=== PATIENT | female | born 1955 | race Caucasian/White ===

== ENCOUNTER 2017-06-28 09:37 | Emergency (ER) | payer BC ==
[2017-06-28] MEDS ORDERED: SODIUM CHLORIDE 0.9% 1,000 ML IV ONE (10:37)
[2017-06-28] MEDS ORDERED: diphenhydrAMINE INJ 50 MG/ML VIAL IVP STA (10:38)
--- NOTE | 2017-06-28 10:42 | ED Physician Documentation ---
History of Present Illness - Stated complaint Stated Complaint: TAI,NAUSEA - Chief complaint Chief Complaint: General - History obtained from History obtained from: Patient - Additonal information Additional information: Patient is a 61-year-old female who is for the most part is healthy. She does have a history of hypertension and had a laminectomy at L4-L5 in February. Over the past couple days she has had a left-sided frontal headache at is bandlike in distribution. She also feels like she has had mild disequilibrium worse when she stands up. She has had nausea without vomiting. He does not typically get headaches but did have headaches following her spinal surgery secondary to orthostatic hypotension from what sounds like a dural leak. She noticed her blood pressure was a little high and started taking her amlodipine. She has been off this medication since the surgery. She also takes supplemental Premarin hormone replacement. She denies any fever or chills. When she closes her eyes she feels her balance is a bit off. She does not have any obvious spinning symptoms and there is no weakness numbness or tingling anywhere. She says she does not normally get a headache. Review of systems: For pertinent positive and negatives in the review of systems please see the history of present illness, otherwise all other systems have been reviewed and are negative. Dragon disclaimer: Parts of this medical record were created using voice recognition technology. Because of the inherent limitations of this system, occasional same sounding word substitutions do occur and persist despite proofreading. Please read the document for context. Review of Systems Constitutional: denies: Fever, Chills, Myalgias Eyes: denies: Loss of vision, Decreased vision Ears: reports: Tinnitus/ringing. 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 - Present Medications Home Medications: Ambulatory Orders Medication Instructions Recorded Confirmed Estrogens, Conjugated [Premarin] 0.09 mg PO DAILY 06/28/17 06/28/17 Famotidine [Pepcid] 20 mg PO DAILY 06/28/17 06/28/17 Frovatriptan Succinate 2.5 mg PO ONCE #14 tablet 06/28/17 Tramadol HCl 50 mg PO Q8HR PRN #14 tablet 06/28/17 amLODIPine [Norvasc] 5 mg PO DAILY 06/28/17 06/28/17 - Allergies Allergies/Adverse Reactions: Allergies Allergy/AdvReac Type Severity Reaction Status Date / Time aspirin Allergy Unknown Verified 06/28/17 09:45 codeine Allergy Unknown Verified 06/28/17 09:45 diphenhydramine HCl * Allergy Unknown Verified 06/28/17 11:05 [From Benadryl] erythromycin base Allergy Unknown Verified 06/28/17 09:45 - Social History Does the pt smoke?: No Smoking Status: Never smoker Does the pt drink ETOH?: No Does the pt have substance abuse?: No PD ED PE NORMAL - Vitals Vital signs reviewed: Yes - General General: Alert and oriented X 3, No acute distress, Well developed/nourished - HEENT HEENT: Atraumatic, PERRL, EOMI - Neck Neck: Supple, no meningeal sign, No bony TTP - Cardiac Cardiac: RRR, No murmur, No gallop, No rub - Respiratory Respiratory: No respiratory distress, Clear bilaterally - Abdomen Abdomen: Normal bowel sounds, Soft, Non tender - Back Back: No CVA TTP - Derm Derm: Normal color, Warm and dry - Extremities Extremities: No deformity, No tenderness to palpate, Normal ROM s pain - Neuro Neuro: Alert and oriented X 3, commutator undercutter 2-12 intact, No motor deficit, No sensory deficit Results - Vitals Vitals: Vital Signs - 24 hr 06/28/17 06/28/17 06/28/17 09:41 11:41 13:13 Temperature 36.0 C L Heart Rate 59 L 49 L 57 L Respiratory 18 18 18 Rate Blood Pressure 174/85 H 183/64 H 173/70 H O2 Saturation 99 100 100 06/28/17 06/28/17 14:28 15:12 Temperature Heart Rate 52 L 55 L Respiratory 16 12 Rate Blood Pressure 178/77 H 178/63 H O2 Saturation 99 100 Oxygen O2 Source Room air - Labs Labs: Laboratory Tests 06/28/17 06/28/17 06/28/17 10:55 10:55 11:40 WBC 8.4 RBC 4.70 Hgb 14.6 Hct 43.3 MCV 92.1 MCH 31.2 H MCHC 33.8 RDW 12.9 Plt Count 249 MPV 9.5 Neut # 5.1 Lymph # 2.6 Bowman # 0.5 Eos # 0.1 Baso # 0.1 Absolute Nucleated RBC 0.00 Nucleated RBCs 0.0 Sodium 139 Potassium 3.6 Chloride 102 Carbon Dioxide 29 Anion Gap 8.0 BUN 16 Creatinine 0.8 Estimated GFR (MDRD) 73 L Glucose 89 Calcium 9.0 Urine Color STRAW Urine Clarity CLEAR Urine pH 7.0 Ur Specific [place] <=1.005 Urine Protein NEGATIVE Urine Glucose (UA) NEGATIVE Urine Ketones NEGATIVE Urine Occult Blood TRACE-INTA Urine Nitrite NEGATIVE Urine Bilirubin NEGATIVE Urine Urobilinogen 0.2 (NORMAL) Ur Leukocyte Esterase NEGATIVE Ur Microscopic Review NOT INDICATED Urine Culture Comments NOT INDICATED PD MEDICAL DECISION MAKING - ED course ED course: Patient is a 61-year-old female with history of hypertension and a fairly recent history of laminectomy of L4-L5. She presents with a complaint of a frontal headache that is bandlike in distribution noted and that her blood pressure was slightly elevated as well. The patient thought that the blood pressure elevation was causal to her headache. She does have a history of headaches in the past and years ago did take Imitrex on occasional basis. She does have a history of hypertension is been off the amlodipine for the most part after she had orthostatic hypotension following her back surgery. She recently started taking amlodipine a couple days ago. On examination the patient is a pleasant well-appearing female in no apparent distress she has a normal neurologic exam with the exception of the positive Romberg. There is a little sway when she closes her eyes standing with a wide-based gait. The rest of her neurologic examination is normal I did not appreciate any nystagmus. A CT scan of the head was done is unremarkable. She is given IV fluids Zofran and Toradol and ultimately Imitrex with marked improvement in her headache. Blood pressure came down mildly but she still had mild elevation so she will continue taking her amlodipine That she recently started. The patient at this point will be discharged home I have given her some information on the Eve maneuver I will put her on Frova and give her also a small prescription for tramadol. Disposition: To home Clinical impression: 1. Frontal bandlike headache that responded nicely to Imitrex 2. Hypertension-mild elevation, patient to reinitiate amlodipine 3. Nonspecific vertiginous complaints with mild ataxia, patient to try Eve maneuver at home Departure - Departure Disposition: , Self Care Clinical Impression: Headache Condition: Good Instructions: ED Headache Migraine Follow-Up: Wilfredo Mcclendon MD [Primary Care Provider] - Prescriptions: Tramadol HCl 50 mg PO Q8HR PRN #14 tablet PRN Reason: Pain Frovatriptan Succinate 2.5 mg PO ONCE #14 tablet
[2017-06-28 11:05] LABS: BASOPHILS # (AUTO) 0.1 10^3/uL (0.0-0.1); EOSINOPHILS # (AUTO) 0.1 10^3/uL (0.0-0.7); EOSINOPHILS % (AUTO) 1.7 %; HCT - HEMATOCRIT 43.3 % (37.0-47.0); HGB - HEMOGLOBIN 14.6 g/dL (12.0-16.0); LYMPHOCYTES # (AUTO) 2.6 10^3/uL (1.5-3.5); LYMPHOCYTES % (AUTO) 30.5 %; MEAN CORPUSCULAR HEMOGLOBIN 31.2 pg (27.0-31.0); MEAN CORPUSCULAR HGB CONC 33.8 g/dL (32.0-36.0); MEAN CORPUSCULAR VOLUME 92.1 fL (81.0-99.0); MEAN PLATELET VOLUME 9.5 fL (7.9-10.8); MONOCYTES # (AUTO) 0.5 10^3/uL (0.0-1.0); MONOCYTES % (AUTO) 5.8 %; NEUTROPHILS # (AUTO) 5.1 10^3/uL (1.5-6.6); RED CELL DISTRIBUTION WIDTH 12.9 % (12.0-15.0); UNCORRECTED WHITE BLOOD COUNT 8.4 x10^3/uL; WHITE BLOOD COUNT 8.4 x10^3/uL (4.8-10.8)
[2017-06-28 11:16] LABS: CREATININE 0.8 mg/dL (0.4-1.0); POTASSIUM 3.6 mmol/L (3.5-5.0)
[2017-06-28] MEDS ORDERED: ONDANSETRON 4 MG/2 ML VIAL IVP STA (11:18)
[2017-06-28] MEDS ORDERED: ONDANSETRON 4 MG/2 ML VIAL ONE (11:19)
[2017-06-28 11:48] LABS: BILIRUBIN,URINE NEGATIVE (NEGATIVE)
--- NOTE | 2017-06-28 11:48 | CT Preliminary Report ---
Exam: CT Head W/O IMPRESSION: 1. Normal noncontrast head CT [facility] SITE ID: [id number]
[2017-06-28 11:49] LABS: UA CHARGE (STRIP ONLY) YES; UR CULTURE IF IND NOT INDICATED
--- NOTE | 2017-06-28 11:50 | CT Report ---
EXAM: CT HEAD EXAM DATE: 06/28/2017 11:33 AM. CLINICAL HISTORY: Frontal guzman/vertigo. COMPARISON: None. TECHNIQUE: Multiaxial CT images were obtained from the foramen magnum to the vertex. IV contrast: Non e. Reformats: Coronal. In accordance with CT protocol optimization, one or more of the following dose reduction techniques w ere utilized for this exam: automated exposure control, adjustment of mA and/or KV based on patient s ize, or use of iterative reconstructive technique. FINDINGS: Ventricles and sulci are within normal limits. No extra-axial fluid collection is seen. Nunez-white ma tter differentiation is preserved. No intracranial mass or hemorrhage is present. Mastoid air cells are well-aerated. The calvarium is intact IMPRESSION: 1. Normal noncontrast head CT [facility] Referring Provider Line: [phone] SITE ID: [id number]
[2017-06-28] MEDS ORDERED: KETOROLAC 30 MG/ML VIAL IVP STA (13:06)
[2017-06-28] MEDS ORDERED: KETOROLAC 30 MG/ML VIAL ONE (13:19)
[2017-06-28] MEDS ORDERED: SUMAtriptan 6 MG/0.5 ML VIAL SUBQ STA (13:56)
[2017-06-28] MEDS ORDERED: SUMAtriptan 6 MG/0.5 ML VIAL SUBQ ONE (14:04)
[2017-06-28 15:13] VITALS: BP 178/63
== END 2017-06-28 15:15 | disposition home or self-care (01) ==
LOC: ED 09:37
DX: R51 Headache (principal); I10 Essential (primary) hypertension
CPT/HCPCS: 36415; 70450; 80048; 81001; 81003; 85025; 87086; 96361; 96372; 96374; 96375; 99284

== ENCOUNTER 2018-06-29 08:43 | Day surgery (SDC) | payer OTHER ==
[2018-06-29] MEDS ORDERED: LACTATED RINGERS 1,000 ML IV ONE (08:48)
[2018-06-29] MEDS ORDERED: fentaNYL 250 MCG/5 ML VIAL IVP ONE (10:27)
[2018-06-29] MEDS ORDERED: MIDAZOLAM 2 MG/2 ML VIAL IVP ONE (10:27)
[2018-06-29 11:32] VITALS: BP 117/70
== END 2018-06-29 08:44 | disposition home or self-care (01) ==
LOC: SDS 08:43
PROVIDERS: ATTEND Surgery
PROC: 0DJD8ZZ Inspection of Lower Intestinal Tract, Via Natural or Artificial Opening Endoscopic (ICD-10-PCS; principal; 2018-06-29 09:45)
DX: Z12.11 Encounter for screening for malignant neoplasm of colon (principal); K57.30 Diverticulosis of large intestine without perforation or abscess without bleeding; K64.8 Other hemorrhoids; I10 Essential (primary) hypertension; Z87.891 Personal history of nicotine dependence
CPT/HCPCS: 45378; J3010; J7120

== ENCOUNTER 2018-07-20 13:59 | Outpatient (CLI) | payer OTHER | END 2018-07-20 14:00 | disposition home or self-care (01) | LOC: DI.N 13:59 | PROVIDERS: ATTEND Radiology Diagnostic Radiology | DX: Z12.31 Encounter for screening mammogram for malignant neoplasm of breast (principal) | CPT/HCPCS: 77067 ==

== ENCOUNTER 2018-08-03 11:47 | Outpatient (CLI) | payer OTHER | END 2018-08-03 11:48 | disposition critical access hospital (66) | LOC: EMS 11:47 | PROVIDERS: ATTEND Surgery | DX: R07.9 Chest pain, unspecified (principal) | CPT/HCPCS: A0425; A0427 ==

== ENCOUNTER 2018-08-03 12:07 | Emergency (ER) | payer OTHER ==
[2018-08-03 12:31] LABS: BILIRUBIN,URINE NEGATIVE (NEGATIVE); GLUCOSE, URINE (UA) NEGATIVE (NEGATIVE); KETONES,URINE (UA) NEGATIVE (NEGATIVE); LEUKOCYTE ESTERASE, URINE NEGATIVE (NEGATIVE); NITRITE,URINE NEGATIVE (NEGATIVE); OCCULT BLOOD,URINE TRACE-LYSE (NEGATIVE); PROTEIN,URINE NEGATIVE (NEGATIVE); UROBILINOGEN,URINE 0.2 (NORMAL) E.U./dL (NORMAL)
[2018-08-03 12:33] LABS: CLARITY,URINE CLEAR (CLEAR)
[2018-08-03 12:42] LABS: BASOPHILS % (AUTO) 0.5 %; EOSINOPHILS # (AUTO) 0.2 10^3/uL (0.0-0.7); EOSINOPHILS % (AUTO) 2.3 %; HGB - HEMOGLOBIN 14.1 g/dL (12.0-16.0); LYMPHOCYTES # (AUTO) 2.4 10^3/uL (1.5-3.5); LYMPHOCYTES % (AUTO) 31.2 %; MEAN CORPUSCULAR HEMOGLOBIN 31.9 pg (27.0-31.0); MEAN CORPUSCULAR HGB CONC 34.5 g/dL (32.0-36.0); MEAN CORPUSCULAR VOLUME 92.6 fL (81.0-99.0); MEAN PLATELET VOLUME 8.7 fL (7.9-10.8); MONOCYTES # (AUTO) 0.6 10^3/uL (0.0-1.0); MONOCYTES % (AUTO) 7.3 %; NEUTROPHILS # (AUTO) 4.6 10^3/uL (1.5-6.6); NEUTROPHILS % (AUTO) 58.7 %; PLT - PLATELET COUNT 273 10^3/uL (130-450); RED BLOOD COUNT 4.43 10^6/uL (4.20-5.40); RED CELL DISTRIBUTION WIDTH 13.6 % (12.0-15.0); WHITE BLOOD COUNT 7.8 x10^3/uL (4.8-10.8)
[2018-08-03 12:57] LABS: ALBUMIN/GLOBULIN RATIO 1.3 (1.0-2.2); BILIRUBIN,TOTAL 0.4 mg/dL (0.2-1.0); CREATININE 0.7 mg/dL (0.4-1.0); TOTAL PROTEIN 7.1 g/dL (6.7-8.2)
--- NOTE | 2018-08-03 13:30 | XRAY Report ---
Reason: chest pain Procedure Date: 08/03/2018 Accession Number: [id number] / [id number] Procedure: XR - Chest 2 View X-Ray CPT Code: 73159 FULL RESULT: EXAM: CHEST RADIOGRAPHY EXAM DATE: 08/03/2018 12:58 PM. CLINICAL HISTORY: Chest pain. COMPARISON: None. TECHNIQUE: 2 views. FINDINGS: Lungs/Pleura: No focal opacities evident. No pleural effusion. No pneumothorax. Normal volumes. Mediastinum: Heart and mediastinal contours are unremarkable. IMPRESSION: No evidence of acute thoracic process [facility]
--- NOTE | 2018-08-03 13:44 | ED Physician Documentation ---
PD HPI CHEST PAIN - Stated complaint Stated Complaint: CHEST PAIN - Chief complaint Chief Complaint: Cardiac - History obtained from History obtained from: Patient - History of Present Illness Timing - onset: How many weeks ago (2) Timing - onset during: Rest Timing - duration: Weeks (2) Timing - details: Abrupt onset, Now resolved, Waxing and waning Quality: Pressure, Tightness Location: Left chest Radiation: Neck Improved by: Rest Worsened by: Movement, Palpation, Position Associated symptoms: No: Shortness of air, Diaphoresis, Nausea, Vomiting, Feeling faint / dizzy, General Weakness, Palpitations, Cough Similar symptoms before: Has not had sx before Recently seen: Clinic - Additional information Additional information: 62-year-old female is had some pain in her left shoulder and left anterior chest and into the left axilla over the past 2 weeks. She states that the pain is haphazard and comes and goes and she believes it was related to doing some overhead lifting helping move some long boards some lumbar with her up overhead. She did not have pain at the time this happened and developed the pain the day after. She went into see her physician today for evaluation had an electrocardiogram done was given some aspirin and is come to the emergency department for further evaluation. The EKG was normal and the patient no longer has chest pain. She is on estrogen and denies dyspnea but does have some leg swelling that is due to her amlodipine and is symmetric. Review of Systems Constitutional: denies: Fever Eyes: denies: Decreased vision Ears: denies: Ear pain Nose: denies: Congestion Throat: denies: Sore throat Cardiac: reports: Chest pain / pressure, Pedal edema. 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 HEENT: Tonsil/Adenoidectomy - Present Medications Home Medications: Ambulatory Orders Medication Instructions Recorded Confirmed amLODIPine [Norvasc] 5 mg PO DAILY 06/28/17 08/03/18 Estradiol 0.5 mg PO DAILY 06/29/18 08/03/18 Naproxen [Naprosyn] 250 mg PO BID 06/29/18 08/03/18 Zolpidem [Ambien] 2.5 mg PO HS 06/29/18 08/03/18 - Allergies Allergies/Adverse Reactions: Allergies Allergy/AdvReac Type Severity Reaction Status Date / Time adhesive tape Allergy Rash Verified 08/03/18 12:22 aspirin AdvReac Nausea Verified 08/03/18 12:22 codeine AdvReac Nausea Verified 08/03/18 12:22 diphenhydramine HCl * AdvReac Unknown Verified 08/03/18 12:22 [From Benadryl] erythromycin base AdvReac Nausea Verified 08/03/18 12:22 - Social History Does the pt smoke?: No Smoking Status: Never smoker Does the pt drink ETOH?: No Does the pt have substance abuse?: No PD ED PE NORMAL - Vitals Vital signs reviewed: Yes (hypertensive ) - General General: Alert and oriented X 3, No acute distress - HEENT HEENT: Atraumatic, PERRL, EOMI - Neck Neck: Supple, no meningeal sign, No bony TTP - Cardiac Cardiac: RRR, No murmur - Respiratory Respiratory: No respiratory distress, Clear bilaterally - Abdomen Abdomen: Soft, Non tender - Back Back: No CVA TTP, No spinal TTP - Derm Derm: Normal color, Warm and dry, No rash - Extremities Extremities: No deformity, No edema - Neuro Neuro: Alert and oriented X 3, 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, No motor deficit, No sensory deficit, Normal speech Eye Opening: Spontaneous Motor: Obeys Commands Verbal: Oriented GCS Score: 15 - Psych Psych: Normal mood, Normal affect Results - Vitals Vitals: Vital Signs - 24 hr 08/03/18 08/03/18 08/03/18 12:11 12:48 14:22 Temperature 36.8 C Heart Rate 58 L 58 L 66 Respiratory 12 12 16 Rate Blood Pressure 181/72 H 165/68 H 162/74 H O2 Saturation 97 97 97 Oxygen O2 Source Room air - EKG (time done) 1215 Rate: Rate (enter#) (55) Rhythm: NSR Ischemia: Normal ST segments Compare to prior EKG: Old EKG unavailable Computer interpretation: Agree with computer - Labs Labs: Laboratory Tests 09/10/18 09/10/18 09/10/18 12:21 12:35 12:35 WBC 7.8 RBC 4.43 Hgb 14.1 Hct 41.0 MCV 92.6 MCH 31.9 H MCHC 34.5 RDW 13.6 Plt Count 273 MPV 8.7 Neut # (Auto) 4.6 Lymph # (Auto) 2.4 Slope # (Auto) 0.6 Eos # (Auto) 0.2 Baso # (Auto) 0.0 Absolute Nucleated RBC 0.00 Nucleated RBC % 0.0 D-Dimer Sodium 139 Potassium 3.6 Chloride 101 Carbon Dioxide 28 Anion Gap 10.0 BUN 17 Creatinine 0.7 Estimated GFR (MDRD) 85 L Glucose 96 Calcium 9.0 Total Bilirubin 0.4 AST 39 ALT 33 Alkaline Phosphatase 74 Troponin I Total Protein 7.1 Albumin 4.0 Globulin 3.1 Albumin/Globulin Ratio 1.3 Lipase 29 Urine Color YELLOW Urine Clarity CLEAR Urine pH 7.0 Ur Specific [place] 1.010 Urine Protein NEGATIVE Urine Glucose (UA) NEGATIVE Urine Ketones NEGATIVE Urine Occult Blood TRACE-LYSE Urine Nitrite NEGATIVE Urine Bilirubin NEGATIVE Urine Urobilinogen 0.2 (NORMAL) Ur Leukocyte Esterase NEGATIVE Ur Microscopic Review NOT INDICATED Urine Culture Comments NOT INDICATED 08/03/18 08/03/18 12:35 12:35 WBC RBC Hgb Hct MCV MCH MCHC RDW Plt Count MPV Neut # (Auto) Lymph # (Auto) Slope # (Auto) Eos # (Auto) Baso # (Auto) Absolute Nucleated RBC Nucleated RBC % D-Dimer < 200.0 L Sodium Potassium Chloride Carbon Dioxide Anion Gap BUN Creatinine Estimated GFR (MDRD) Glucose Calcium Total Bilirubin AST ALT Alkaline Phosphatase Troponin I < 0.04 Total Protein Albumin Globulin Albumin/Globulin Ratio Lipase Urine Color Urine Clarity Urine pH Ur Specific [place] Urine Protein Urine Glucose (UA) Urine Ketones Urine Occult Blood Urine Nitrite Urine Bilirubin Urine Urobilinogen Ur Leukocyte Esterase Ur Microscopic Review Urine Culture Comments - Rads (name of study) 2 veiw chest Radiology: Prelim report reviewed (Impression: No evidence of acute intrathoracic process), EMP read indepedently, See rad report Procedures - IVC sono (time) 1350 Bedside IVC sono: IVC measures (cm) (1.12), IVC collapsed c insp (cm) (complete) , Dehydration (est 1 liter deficit) PD MEDICAL DECISION MAKING - ED course Complexity details: reviewed old records, reviewed results, re-evaluated patient , considered differential, d/w patient, d/w family ED course: 62-year-old female who is on estrogen has had some pain in her left chest and shoulder. She feels the pain is nerve like in nature and related to lifting some boards prior to the onset of the pain. She is sent to the emergency department for evaluation by her primary care doctor with concerns about coronary syndrome and pulmonary embolus. The patient has a normal EKG, negative d-dimer, negative troponin negative chest x-ray and unremarkable blood work. Her pain appears to be related to a musculoskeletal problem and she is found to be dehydrated on interrogation of her inferior vena cava. This is known to make muscle spasm significantly worse. She is administered dexamethasone 10 mg intravenously as well as a liter of saline. - Sepsis Event Vital Signs: Vital Signs - 24 hr 08/03/18 08/03/18 08/03/18 12:11 12:48 14:22 Temperature 36.8 C Heart Rate 58 L 58 L 66 Respiratory 12 12 16 Rate Blood Pressure 181/72 H 165/68 H 162/74 H O2 Saturation 97 97 97 Oxygen O2 Source Room air Departure - Departure Disposition: 01 Home, Self Care Clinical Impression: Dehydration, Muscle spasm, Atypical chest pain Condition: Stable Instructions: ED Dehydration, ED Spasm Muscle Follow-Up: Diana Gonzalez MD [Primary Care Provider] -
[2018-08-03] MEDS ORDERED: SODIUM CHLORIDE 0.9% 1,000 ML IV ONE (14:06)
[2018-08-03] MEDS ORDERED: DEXAMETHASONE 10 MG/ML VIAL IVP STA (14:06)
[2018-08-03 14:22] VITALS: BP 162/74
== END 2018-08-03 14:59 | disposition home or self-care (01) ==
LOC: EDUNIT# → SUPCPDRO 12:07 → ED 12:07
DX: E86.0 Dehydration (principal); M62.838 Other muscle spasm; R07.89 Other chest pain; I10 Essential (primary) hypertension
CPT/HCPCS: 36415; 71046; 80053; 81001; 81003; 83690; 84484; 85025; 85379; 87086; 93005; 96374; 99283; 99284

== ENCOUNTER 2018-11-25 14:46 | Outpatient (CLI) | payer OTHER ==
--- NOTE | 2018-11-25 22:24 | MRI Report ---
Reason: KNEE JOINT PAIN, LEFT Procedure Date: 11/25/2018 Accession Number: [id number] / [id number] Procedure: MRI - Knee LT W/O CPT Code: FULL RESULT: EXAM: LEFT KNEE MRI WITHOUT CONTRAST EXAM DATE: 11/25/2018 03:35 PM. CLINICAL HISTORY: Left knee joint pain. COMPARISON: Knee 2 views bilateral 09/22/2018 9:23 AM. TECHNIQUE: Multiplanar, multisequence T1-weighted and fluid-sensitive sequences of the knee without contrast. Other: None. FINDINGS: Bones and articular cartilage: Marginal osteophytes at the femoral condyles, tibial plateau, and patella. Subcortical cyst at the posteromedial aspect of the medial femoral condyle. Grade 3 chondromalacia at the medial femoral condyle and grade 2-3 chondromalacia of the medial tibial plateau. Grade 3 chondromalacia at the median ridge and medial facet of the patella. No subluxations. Medial Meniscus: Oblique tear at the inner and middle thirds of the posterior horn. Lateral Meniscus: The lateral meniscus is intact. Cruciate Ligaments: The anterior and posterior cruciate ligaments are intact. Collateral Ligaments: The medial collateral and lateral collateral ligamentous structures are intact. Tendons: The quadriceps, patellar, semimembranosus, and popliteus tendons are unremarkable. Musculature: No edema or fatty atrophy. Other: No effusion. Small to moderate-sized popliteal cyst. No loose bodies. The medial and lateral retinacula are intact. The subcutaneous tissues and fat pads are unremarkable. IMPRESSION: 1. Osteoarthritis at the medial and patellofemoral compartments. 2. Oblique tear at the posterior horn medial meniscus. 3. Small to moderate-sized popliteal cyst. [facility] MUSCULOSKELETAL RADIOLOGY SECTION
== END 2018-11-25 14:47 | disposition home or self-care (01) ==
LOC: DI 14:46
PROVIDERS: ATTEND Orthopaedic Surgery Sports Medicine
DX: M17.12 Unilateral primary osteoarthritis, left knee (principal); S83.242A Other tear of medial meniscus, current injury, left knee, initial encounter; M71.22 Synovial cyst of popliteal space [Baker], left knee

== ENCOUNTER 2019-01-19 07:18 | Outpatient (CLI) | payer OTHER ==
[2019-01-19 13:06] LABS: CHOL/HDL RATIO 3.8 (<4.4); CHOLESTEROL 190 mg/dL; HDL CHOLESTEROL 50 mg/dL; LDL CHOLESTEROL,CALCULATED 111 mg/dL; LDL/HDL RATIO 2.2 (<4.4); VLDL CHOLESTEROL 29 mg/dL
== END 2019-01-19 07:19 | disposition home or self-care (01) ==
LOC: LAB.WCP 07:18
PROVIDERS: ATTEND Family Medicine
DX: Z13.220 Encounter for screening for lipoid disorders (principal)
CPT/HCPCS: 36415; 80061; 83721

== ENCOUNTER 2019-02-18 14:05 | Outpatient (CLI) | payer OTHER ==
[2019-02-18 18:39] LABS: BASOPHILS % (AUTO) 0.4 %; EOSINOPHILS # (AUTO) 0.1 10^3/uL (0.0-0.7); EOSINOPHILS % (AUTO) 1.5 %; HGB - HEMOGLOBIN 13.8 g/dL (12.0-16.0); LYMPHOCYTES # (AUTO) 2.8 10^3/uL (1.5-3.5); LYMPHOCYTES % (AUTO) 33.9 %; MEAN CORPUSCULAR HEMOGLOBIN 31.4 pg (27.0-31.0); MEAN CORPUSCULAR HGB CONC 33.8 g/dL (32.0-36.0); MEAN CORPUSCULAR VOLUME 92.9 fL (81.0-99.0); MEAN PLATELET VOLUME 10.3 fL (7.9-10.8); MONOCYTES # (AUTO) 0.6 10^3/uL (0.0-1.0); MONOCYTES % (AUTO) 7.1 %; NEUTROPHILS # (AUTO) 4.7 10^3/uL (1.5-6.6); NEUTROPHILS % (AUTO) 57.1 %; PLT - PLATELET COUNT 295 10^3/uL (130-450); RED BLOOD COUNT 4.39 10^6/uL (4.20-5.40); RED CELL DISTRIBUTION WIDTH 13.7 % (12.0-15.0); WHITE BLOOD COUNT 8.1 x10^3/uL (4.8-10.8)
[2019-02-18 20:50] LABS: ALBUMIN 4.3 g/dL (3.2-5.5); ALBUMIN/GLOBULIN RATIO 1.8 (1.0-2.2); BILIRUBIN,TOTAL 0.2 mg/dL (0.2-1.0); CALCIUM 9.2 mg/dL (8.5-10.3); CREATININE 0.7 mg/dL (0.4-1.0); TOTAL PROTEIN 6.7 g/dL (6.7-8.2)
== END 2019-02-18 14:06 | disposition home or self-care (01) ==
LOC: LAB.WCP 14:05
PROVIDERS: ATTEND Physician Assistant Medical
DX: R10.31 Right lower quadrant pain (principal)
CPT/HCPCS: 36415; 80053; 83690; 85025

== ENCOUNTER 2019-04-18 08:42 | Outpatient (CLI) | payer OTHER ==
--- NOTE | 2019-04-19 00:51 | Ultrasound Report ---
Reason: RUQ PAIN Procedure Date: 04/18/2019 Accession Number: [id number] / [id number] Procedure: US - Abdomen Limited CPT Code: FULL RESULT: EXAM: ABDOMEN ULTRASOUND LIMITED, RUQ EXAM DATE: 04/18/2019 09:20 AM. CLINICAL HISTORY: RUQ pain. COMPARISON: None. TECHNIQUE: Real-time scanning was performed with static images obtained. FINDINGS: Liver: Normal in size and echotexture. Elongated right liver measures 19 cm. Main portal vein flow: Hepatopetal. Gallbladder: Normal. No stones, wall thickening, or sonographic Becerra's sign. Biliary System: CBD measures 5 mm. No intrahepatic or extrahepatic ductal dilatation. Pancreas: Echogenic, otherwise unremarkable. Right kidney: 8.3 cm. No leisa hydronephrosis or stone. Proximal right ureter measures 7.5 mm. Abdominal Aorta and IVC: Normal. Other: None. IMPRESSION: 1. Elongated right liver measures 19 cm. No mass or intrahepatic bile duct dilation. 2. Normal gallbladder and common bile duct. 3. Moderate prominent proximal right ureter. No definite stone. Correlate for right flank pain. If present, consider further evaluation with CT KUB. [facility]
== END 2019-04-18 08:43 | disposition home or self-care (01) ==
LOC: DI 08:42
PROVIDERS: ATTEND Internal Medicine
DX: R10.11 Right upper quadrant pain (principal); Q44.7 Other congenital malformations of liver
CPT/HCPCS: 76705

== ENCOUNTER 2019-05-14 07:50 | Outpatient (CLI) | payer OTHER ==
[2019-05-14 08:22] LABS: CREATININE 0.8 mg/dL (0.4-1.0)
--- NOTE | 2019-05-14 13:11 | CT Report ---
Reason: RUQ PAIN Procedure Date: 05/14/2019 Accession Number: [id number] / [id number] Procedure: CT - IVP CPT Code: FULL RESULT: EXAM: CT ABDOMEN AND PELVIS WITHOUT AND WITH CONTRAST (CT IVP) EXAM DATE: 05/14/2019 09:30 AM. CLINICAL HISTORY: Right upper quadrant pain. COMPARISONS: ABDOMEN LIMITED 04/18/2019 8:50 AM. TECHNIQUE: Routine helical imaging was performed through the kidneys, ureters and bladder in the precontrast, postcontrast and delayed phase. IV Contrast: 100 mL Optiray 320. Reconstructions: Coronal and sagittal. In accordance with CT protocol optimization, one or more of the following dose reduction techniques were utilized for this exam: automated exposure control, adjustment of mA and/or KV based on patient size, or use of iterative reconstructive technique. FINDINGS: Lung Bases: Unremarkable. Liver: Normal. No masses. Gallbladder/Bile Ducts: Unremarkable. Spleen: Normal. Pancreas: Normal. Adrenal Glands: Normal. Kidneys/Bladder: Right Kidney/Ureter: No renal or ureteral stones. No hydronephrosis or hydroureter. There is bilaterally symmetric prominence of the pyramids. No masses otherwise detected. Left Kidney/Ureter: No renal or ureteral stones. No hydronephrosis or hydroureter. There is bilaterally symmetric prominence of the pyramids. No masses otherwise detected. Bladder: The bladder is prominently distended. No wall thickening or mass. Peritoneal Cavity/Bowel: Extensive diverticulosis. No bowel obstruction. No free fluid, free air or lymphadenopathy. The appendix is not well seen. What is felt to represent the appendix can be identified in image 21 series 9 and image 55 series 7 and appears normal. Pelvic Organs: Uterus demonstrates heterogeneous enhancement, presumably fibroids. Vasculature: No aneurysms or other significant abnormality. Bones: No significant abnormality. Other: None. IMPRESSION: No right hydroureteronephrosis. No definite genitourinary masses detected. No right-sided renal calculus. Heterogeneous appearance of the uterus, presumed fibroids. If clinically indicated, this could be further evaluated by pelvic ultrasound. [facility]
[2019-05-14] MEDS ORDERED: IOVERSOL 320 100 ML VIAL IVP ONE (15:35)
== END 2019-05-14 07:51 | disposition home or self-care (01) ==
LOC: LAB 07:50
PROVIDERS: ATTEND Internal Medicine
DX: R10.11 Right upper quadrant pain (principal)
CPT/HCPCS: 36415; 74178; 82565; Q9967

== ENCOUNTER 2019-05-22 08:17 | Outpatient (CLI) | payer OTHER ==
--- NOTE | 2019-05-22 16:32 | Ultrasound Report ---
Reason: PELVIC MASS Procedure Date: 05/22/2019 Accession Number: [id number] / [id number] Procedure: US - Pelvic w/Transvaginal CPT Code: FULL RESULT: EXAM: PELVIC ULTRASOUND EXAM DATE: 05/22/2019 09:02 AM. CLINICAL HISTORY: Pelvic mass. Status post hysterectomy and bilateral oophorectomy. COMPARISON: IVP 05/14/2019 9:07 AM. TECHNIQUE: Realtime transabdominal pelvic scan performed to identify the uterus and adnexa and as an overview of other pelvic structures, followed by transvaginal scan to provide greater detail of the uterus and adnexa, with static image documentation. FINDINGS: Uterus: Surgically absent. Cervix: The cervix is retained and demonstrates innumerable nabothian cysts, the largest measuring up to 2.2 cm. There is also an echogenic but nonvascular cervical lesion measuring 1.6 x 1.0 x 1.8 cm. Right Ovary: Surgically absent. No masses evident. Left Ovary: Surgically absent. No masses evident. Free Fluid: None. Other: None. IMPRESSION: 1. Status post hysterectomy and bilateral oophorectomy. 2. Numerous cervical nabothian cysts measuring up to 2.2 cm. 3. 1.8 cm echogenic cervical lesion is nonvascular and may represent a complex cyst or less likely poorly vascularized mass. Sonographic follow-up may be considered. [facility]
== END 2019-05-22 08:18 | disposition home or self-care (01) ==
LOC: DI 08:17
PROVIDERS: ATTEND Internal Medicine
DX: R19.00 Intra-abdominal and pelvic swelling, mass and lump, unspecified site (principal); N88.8 Other specified noninflammatory disorders of cervix uteri
CPT/HCPCS: 76830; 76856

== ENCOUNTER 2019-09-15 13:29 | Outpatient (CLI) | payer OTHER ==
--- NOTE | 2019-09-15 19:11 | Ultrasound Report ---
Reason: SCR FOR CERVICAL CA, CERVICAL CYST Procedure Date: 09/15/2019 Accession Number: [id number] / [id number] Procedure: US - Pelvic w/Transvaginal CPT Code: FULL RESULT: EXAM: PELVIC ULTRASOUND EXAM DATE: 09/15/2019 02:48 PM. CLINICAL HISTORY: SCR FOR CERVICAL CA, follow-up abnormal pelvic ultrasound COMPARISON: PELVIC W/TRANSVAGINAL 05/22/2019 8:33 AM. TECHNIQUE: Realtime transabdominal pelvic scan performed to identify the uterus and adnexa and as an overview of other pelvic structures, followed by transvaginal scan to provide greater detail of the uterus and adnexa, with static image documentation. FINDINGS: Uterus: Surgically absent Cervix: Retained. Multiple nabothian cysts, largest 2 x 1.7 x 1.8 cm's. In addition there is a solid echogenic right cervical lesion 1.7 x 1.3 x 1.4 cm not appreciably changed since 05/22/2019 allowing for technical variation. Right Ovary: Surgically absent, no adnexal mass. Left Ovary: Surgically absent, no adnexal mass. Free Fluid: None. Other: None. IMPRESSION: Stable pelvic ultrasound status post hysterectomy and bilateral for leobardo to vt when compared with 05/22/2019. The cervix remains containing multiple nabothian cysts and 1 avascular complex cystic versus solid echogenic cervical lesion 1.7 x 1.3 x 1.4 cm. Suggest follow-up ultrasound in 4-6 months. RADIA
== END 2019-09-15 13:30 | disposition home or self-care (01) ==
LOC: DI 13:29
PROVIDERS: ATTEND Obstetrics & Gynecology
DX: Z12.4 Encounter for screening for malignant neoplasm of cervix (principal); N88.8 Other specified noninflammatory disorders of cervix uteri; N88.9 Noninflammatory disorder of cervix uteri, unspecified
CPT/HCPCS: 76830; 76856

== ENCOUNTER 2019-09-21 16:26 | Outpatient (CLI) | payer OTHER ==
--- NOTE | 2019-09-24 09:51 | Mammography Report ---
Reason: ROUTINE MAMMO Procedure Date: 09/21/2019 Accession Number: [id number] / [id number] Procedure: [facility] - Screening Mammo w/Steve CPT Code: Final Report FULL RESULT: EXAM: Screening Mammo w/Steve DATE: 09/21/2019 4:46 PM CLINICAL HISTORY: Routine screening TECHNIQUE: (B) - Bilateral CC and MLO views were obtained. COMPARISON: 07/20/2018, 02/17/2017, 02/06/2016, 01/18/2015, 12/22/2013 and 11/26/2012. PARENCHYMAL PATTERN: (A) - The breasts demonstrate scattered fibroglandular densities bilaterally. FINDINGS: No significant interval change. There are no suspicious masses, calcifications, or areas of distortion. IMPRESSION: Negative examination. BI-RADS category 1. RECOMMENDATION: (ANNUAL) - Recommend routine annual screening mammography. BI-RADS CATEGORY: (1) - Negative. STANDARD QUALIFYING STATEMENTS: 1. This examination was not reviewed with the aid of Computer-Aided Detection (CAD). 2. A negative or benign imaging report should not preclude biopsy if clinically suspicious findings are present. 3. Dense breasts may obscure an underlying neoplasm. 4. This examination was reviewed with the aid of 3D breast imaging (tomosynthesis).
== END 2019-09-21 16:27 | disposition home or self-care (01) ==
LOC: DI 16:26
PROVIDERS: ATTEND Internal Medicine
DX: Z12.31 Encounter for screening mammogram for malignant neoplasm of breast (principal)
CPT/HCPCS: 77063; 77067

== ENCOUNTER 2019-10-19 14:19 | Outpatient (CLI) | payer OTHER ==
--- NOTE | 2019-10-20 12:13 | XRAY Report ---
Reason: PAIN IN LT HAND Procedure Date: 10/19/2019 Accession Number: [id number] / [id number] Procedure: XR - Hand 3 View LT CPT Code: Final Report FULL RESULT: EXAM: LEFT HAND RADIOGRAPHY EXAM DATE: 10/19/2019 02:36 PM. CLINICAL HISTORY: Pain in left hand. COMPARISON: None. TECHNIQUE: 3 views. FINDINGS: Bones: . No fractures or abnormal bone lesions. Joints: Moderate narrowing of the first carpometacarpal articulation, with subchondral cystic and sclerotic changes of the base of the first metacarpal and of the trapezium. Mild osteophytic spurring at the trapezium. The articulations elsewhere appear within normal limits. Soft Tissues: Normal. No soft tissue swelling. IMPRESSION: Focal moderate degenerative changes at the first carpometacarpal articulation. RADIA
== END 2019-10-19 14:20 | disposition home or self-care (01) ==
LOC: DI 14:19
PROVIDERS: ATTEND Internal Medicine
DX: M18.12 Unilateral primary osteoarthritis of first carpometacarpal joint, left hand (principal)

== ENCOUNTER 2020-01-27 17:09 | Outpatient (CLI) | payer MEDICARE, OTHER ==
--- NOTE | 2020-01-28 01:43 | Ultrasound Report ---
Reason: CERVICAL CYST Procedure Date: 01/27/2020 Accession Number: [id number] / [id number] Procedure: US - Pelvic w/Transvaginal CPT Code: Final Report FULL RESULT: EXAM: PELVIC ULTRASOUND EXAM DATE: 01/27/2020 06:00 PM. CLINICAL HISTORY: CERVICAL CYST. COMPARISON: PELVIC W/TRANSVAGINAL 09/15/2019 2:08 PM. TECHNIQUE: Realtime transabdominal pelvic scan performed to identify the uterus and adnexa and as an overview of other pelvic structures, followed by transvaginal scan to provide greater detail of the uterus and adnexa, with static image documentation. FINDINGS: Uterus: Surgically absent. Cervix: Multiple cervical cysts are seen with the largest measuring 1.8 x 1.7 x 1.7 cm. The previously described avascular echogenic cervical lesion is not seen on today's exam. An echogenic focus with posterior acoustic shadowing to the left of the cervix likely represents bowel gas. Right and left ovaries: Surgically absent. Free Fluid: None. Other: None. IMPRESSION: Multiple nabothian cysts within the cervix are again seen. The previously described echogenic cervical lesion is not seen on today's study. RADIA
== END 2020-01-27 17:10 | disposition home or self-care (01) ==
LOC: DI 17:09
PROVIDERS: ATTEND Obstetrics & Gynecology
DX: N88.8 Other specified noninflammatory disorders of cervix uteri (principal)
CPT/HCPCS: 76830; 76856

== ENCOUNTER 2020-05-25 14:28 | Outpatient (CLI) | payer OTHER | END 2020-05-25 14:29 | disposition home or self-care (01) | LOC: LAB 14:28 | PROVIDERS: ATTEND Internal Medicine | DX: B34.9 Viral infection, unspecified (principal); Z20.828 Contact with and (suspected) exposure to other viral communicable diseases | CPT/HCPCS: 81599 ==

== ENCOUNTER 2021-02-23 09:36 | Outpatient (CLI) | payer OTHER ==
[2021-02-23 09:58] LABS: CREATININE 0.9 mg/dL (0.4-1.0)
[2021-02-23] MEDS ORDERED: IOVERSOL 320 100 ML VIAL IVP ONE ×2 (10:09→11:52)
[2021-02-23] MEDS ORDERED: IOPAMIDOL-300 50 ML VIAL ONE (10:09)
[2021-02-23] MEDS ORDERED: IOPAMIDOL-300 50 ML VIAL PO ONE (11:53)
--- NOTE | 2021-02-23 11:56 | CT Report ---
PROCEDURE: Abdomen/Pelvis W INDICATIONS: EPIGASTRIC PAIN RUQ PAIN CONTRAST: IV CONTRAST: Optiray 320 ml: 100 PO CONTRAST: Isovue 300 ml50 TECHNIQUE: After the administration of intravenous contrast, 5 mm thick sections acquired from the diaphragms to the symphysis. 5 mm thick coronal and sagittal reformats were acquired. For radiation dose reducti on, the following was used: automated exposure control, adjustment of mA and/or kV according to domenic ent size. COMPARISON: None. FINDINGS: Image quality: Excellent. ABDOMEN: Lung bases: Lung bases are clear. Heart size is normal. Solid organs: Liver and spleen are normal in size and enhancement. Gallbladder is unremarkable Faisal iary system is non dilated. Pancreas enhances normally. No adrenal nodules. Kidneys demonstrate no rmal size and enhancement, without hydronephrosis. Peritoneum and bowel: Bowel loops demonstrate normal wall thickness and caliber. No free fluid or a ir. Sigmoid diverticulosis without evidence of diverticulitis. Nodes and vessels: No retroperitoneal or mesenteric adenopathy by size criteria. Aorta and inferior vena cava are normal in size. Miscellaneous: No ventral hernias. PELVIS: Genitourinary: Bladder wall thickness is normal. Miscellaneous: No inguinal hernias or adenopathy. Remote hysterectomy. Bones: No suspicious bony lesions. No vertebral body compression fractures. IMPRESSION: 1. No evidence of acute abdominal process. 2. Sigmoid diverticulosis. Reviewed by: Doug Aj MD on 02/23/2021 11:55 AM PDT Approved by: Doug Aj MD on 02/23/2021 11:55 AM PDT Station ID: [id number]
== END 2021-02-23 09:37 | disposition home or self-care (01) ==
LOC: LAB 09:36 → DI 09:37
PROVIDERS: ATTEND Internal Medicine
DX: R10.13 Epigastric pain (principal); R10.11 Right upper quadrant pain; K57.30 Diverticulosis of large intestine without perforation or abscess without bleeding; Z79.899 Other long term (current) drug therapy
CPT/HCPCS: 36415; 74177; 82565; Q9967

== ENCOUNTER 2021-07-20 07:34 | Outpatient (CLI) | payer OTHER ==
[2021-07-20 08:05] LABS: CARBON DIOXIDE - CO2 29 mmol/L (21-32); CHLORIDE 98 mmol/L (101-111); POTASSIUM 3.7 mmol/L (3.5-5.0); SODIUM 136 mmol/L (135-145)
[2021-07-20 08:06] LABS: ALBUMIN 4.2 g/dL (3.2-5.5); ALBUMIN/GLOBULIN RATIO 1.4 (1.0-2.2); ALKALINE PHOSPHATASE 87 IU/L (42-121); ALT ALANINE AMINOTRANSFERASE 34 IU/L (10-60); AST ASPARTATE AMINOTRANSFERASE 29 IU/L (10-42); BILIRUBIN,TOTAL 0.9 mg/dL (0.2-1.0); BUN - BLOOD UREA NITROGEN 15 mg/dL (6-20); CALCIUM 8.9 mg/dL (8.5-10.3); CHOL/HDL RATIO 5.4 (<4.4); CHOLESTEROL 214 mg/dL; CREATININE 0.8 mg/dL (0.4-1.0); GFR - MDRD 72 (>89); GLUCOSE 99 mg/dL (70-100); HDL CHOLESTEROL 40 mg/dL; LDL CHOLESTEROL,CALCULATED 140 mg/dL; LDL/HDL RATIO 3.5 (<4.4); TOTAL PROTEIN 7.3 g/dL (6.7-8.2); TRIGLYCERIDES 170 mg/dL; VLDL CHOLESTEROL 34 mg/dL
[2021-07-21 12:56] LABS: HEPATITIS C ANTIBODY NON-REACTIVE (NON-REACTIVE)
== END 2021-07-20 07:35 | disposition home or self-care (01) ==
LOC: LAB 07:34
PROVIDERS: ATTEND Internal Medicine
DX: R10.11 Right upper quadrant pain (principal); Z79.899 Other long term (current) drug therapy; Z13.6 Encounter for screening for cardiovascular disorders; I10 Essential (primary) hypertension; M19.90 Unspecified osteoarthritis, unspecified site; G56.00 Carpal tunnel syndrome, unspecified upper limb; Z11.59 Encounter for screening for other viral diseases
CPT/HCPCS: 36415; 80053; 80061; 83721; 84443; 86803

== ENCOUNTER 2021-07-24 07:03 | Outpatient (CLI) | payer OTHER ==
--- NOTE | 2021-07-24 09:14 | Ultrasound Report ---
PROCEDURE: Abdomen Limited INDICATIONS: RUQ PAIN TECHNIQUE: Real-time focused scanning was performed of the abdomen, with image documentation. COMPARISON: None FINDINGS: The liver measures 19.1 cm. The liver demonstrates increased echogenicity consistent with hepatic ruslan atosis. There is a cyst in the superior left lobe of the liver measuring 1.3 x 1.3 x 0.8 cm. The gallbladder is normal. No intrahepatic biliary ductal dilatation. The common bile duct measures 2.9 mm. The pancreas is unremarkable. Both kidneys are unremarkable. IMPRESSION: 1. No acute abnormality of the abdomen. 2. Hepatic steatosis. Reviewed by: Balaji Mills on 07/24/2021 9:13 AM PDT Approved by: Balaji Mills on 07/24/2021 9:13 AM PDT Station ID: [id number]
== END 2021-07-24 07:04 | disposition home or self-care (01) ==
LOC: DI 07:03
PROVIDERS: ATTEND Internal Medicine
DX: R10.11 Right upper quadrant pain (principal); K76.0 Fatty (change of) liver, not elsewhere classified